=== PATIENT | female | born 1965 | race Caucasian/White ===

== ENCOUNTER 2017-07-15 10:52 | Emergency (ER) | payer OTHER ==
[2017-07-15] MEDS: Proparacaine 0.5% Ophth Soln 15 ML Bottle EYEBOTH ONE ×2 (11:29→11:58)
--- NOTE | 2017-07-15 11:41 | EDM.PDOC ---
ED HPI GENERAL MEDICAL PROBLEM - General Chief Complaint: Eye Problems Stated Complaint: POKED RT EYE Time Seen by Provider: 07/15/17 11:25 Source of Information: Reports: Patient History Limitations: Reports: No Limitations - History of Present Illness INITIAL COMMENTS - FREE TEXT/NARRATIVE: 51-year-old female was in the shower this morning and poked the medial aspect of her right eye with her fingernail. She didn't have a lot of pain but after she got out of the shower looked in the mirror she noticed it was hemorrhage and significant redness of the medial aspect of the eye. No visual change. Her insisted she have it checked because there's been other members of the family with traumatic injuries. She feels some pressure in the eye but no visual change. Onset: Sudden Duration: Hour(s): (Within the last 2-3 hours) Location: Reports: Other (Right eye) Severity: Mild Associated Symptoms: Reports: No Other Symptoms - Related Data Allergies Allergy/AdvReac Type Severity Reaction Status Date / Time morphine Allergy Itching Verified 07/15/17 11:22 Sulfa (Sulfonamide Allergy Rash Verified 07/15/17 11:22 Antibiotics) Home Meds: Home Meds NK [No Known Home Meds] 07/15/17 [History] Past Medical History - Past Surgical History Cardiovascular Surgical History: Reports: Varicose Musculoskeletal Surgical History: Reports: ORIF Social & Family History - Tobacco Use Smoking Status *Q: Never Smoker ED ROS GENERAL - Review of Systems Review Of Systems: See Below Constitutional: Denies: Fever, Chills Respiratory: Denies: Shortness of Breath Cardiovascular: Denies: Chest Pain GI/Abdominal: Denies: Nausea, Vomiting Neurological: Reports: Other (No visual changes). Denies: Headache ED EXAM GENERAL W FULL EYE - Physical Exam Exam: See Below Exam Limited By: No Limitations General Appearance: Alert, No Apparent Distress Eye Exam: Right Eye: Other (Patient is a fairly significant conjunctival hemorrhage in the medial aspect of the right eye. There is no involvement of the cornea.) Eyelids: Right: Normal Appearance Conjunctiva & Sclera: Right: Subconjuctival Hemorrhage (Medial aspect of the eye ) Pupils: Normal Accommodation Respiratory/Chest: No Respiratory Distress Course - Vital Signs Last Recorded V/S: Last Vital Signs Temp 97.7 F 07/15/17 11:27 Pulse 82 07/15/17 11:27 Resp 14 07/15/17 11:27 BP 154/100 H 07/15/17 11:27 Pulse Ox 98 07/15/17 11:27 - Orders/Labs/Meds Meds: Medications Discontinued Medications Generic Name Dose Route Start Last Admin Trade Name Luann PRN Reason Stop Dose Admin Proparacaine HCl 1 ml 07/15/17 11:08 07/15/17 11:58 Proparacaine 0.5% Ophth Soln EYEBOTH 07/15/17 11:09 Not Given ONETIME ONE - Re-Assessments/Exams Free Text/Narrative Re-Assessment/Exam: 07/15/17 11:39 Reassured the patient that this is an isolated hemorrhage of the cornea or conjunctiva and should resolve. 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 She can return sooner if worsening or concerns. Visine is safe to use to limit the redness. Departure - Departure Time of Disposition: 11:58 Disposition: Home, Self-Care 01 Condition: Good Clinical Impression: Subconjunctival hemorrhage of right eye - Discharge Information Instructions: Subconjunctival Hemorrhage Referrals: PCP,None [Primary Care Provider] - Forms: ED Department Discharge Care Plan Goals: Cool compresses, Visine may help, and recheck if worsening significantly or other concerns. Otherwise follow up with optometry in the next 2-4 days for reassurance. Avoid further trauma to the right eye especially while healing.
== END 2017-07-15 11:58 | disposition home or self-care (01) ==
LOC: JP.ED 10:52
DX: H11.31 Conjunctival hemorrhage, right eye (principal); Z88.2 Allergy status to sulfonamides; Z88.5 Allergy status to narcotic agent
CPT/HCPCS: 99283; A9270-GY

== ENCOUNTER 2025-04-12 10:08 | Emergency (ER) | payer BC, OTHER ==
[2025-04-12 11:38] LABS: APPEARANCE,URINE CLOUDY (CLEAR); GLUCOSE,URINE NEGATIVE (NEGATIVE); OCCULT BLOOD,URINE NEGATIVE (NEGATIVE)
[2025-04-12 12:21] LABS: SQUAMOUS EPITHELIAL CELLS,UR MANY /HPF
[2025-04-12 12:54] LABS: A/G RATIO 1.2 (1.2-2.2); ALANINE AMINOTRANSFERASE,ALT 47 U/L (12-78); ASPARTATE AMNIOTRANSFERASE,AST 33 U/L (15-37); BILIRUBIN TOTAL 0.9 mg/dL (0.2-1.0); BLOOD UREA NITROGEN,BUN 14 mg/dL (7-18); CARBON DIOXIDE,CO2 27 mmol/L (21-32); CHLORIDE,CL 103 mmol/L (100-108); CREATININE 0.9 mg/dL (0.6-1.0); EST CRCL DRUG DOSING (CG) 53.18 mL/min; ESTIMATED GFR 74 mL/min (>60); GLUCOSE RANDOM 111 mg/dL (74-106); POTASSIUM,K 4.0 mmol/L (3.6-5.2); PROTEIN TOTAL,TP 7.0 g/dL (6.4-8.2); SODIUM,NA 138 mmol/L (140-148)
== END 2025-04-12 14:05 | disposition home or self-care (01) ==
LOC: JP.ED 10:08
DX: S02.2XXA Fracture of nasal bones, initial encounter for closed fracture (principal); R00.2 Palpitations; Z88.5 Allergy status to narcotic agent; Z88.2 Allergy status to sulfonamides; Z88.8 Allergy status to other drugs, medicaments and biological substances; Z79.899 Other long term (current) drug therapy; Z86.16 Personal history of COVID-19; W19.XXXA Unspecified fall, initial encounter
CPT/HCPCS: 36415; 70450; 70486; 80053; 81001; 93005; 93010; 99284; 99285